=== PATIENT | female | born 1930 | race Caucasian/White ===

== ENCOUNTER → 2017-07-09 | Outpatient (CLI) | payer MEDICARE ==
[~2017-07-09] MED LIST: ALBU8.5H IH; ALLERGY INJECTIONS SQ; CHOL10005 PO; CHOL200022 PO; FLU44R IH; FLUINH INH; FLUT16SP20 NS; FLUT1BLS3 INH; GLUC-198 PO; LIS10 PO; LOR5/325 PO; LOSA25TA50 PO; MAGN400C PO; MAX75 PO; MAXIDE PO; OMEG-11 PO; VALS40TA6 PO; VITA1CAP46 PO
== END ==
LOC: LAB 07:11
PROVIDERS: ATTEND Internal Medicine
DX: I10 Essential (primary) hypertension (principal); E78.5 Hyperlipidemia, unspecified; E50.9 Vitamin A deficiency, unspecified; E55.9 Vitamin D deficiency, unspecified
CPT/HCPCS: 36415; 82040; 82247; 82306; 82310; 82374; 82435; 82465; 82565; 82947; 83718; 84075; 84132; 84155; 84295; 84450; 84460; 84478; 84520

== ENCOUNTER → 2017-07-23 | Outpatient (CLI) | payer MEDICARE ==
[~2017-07-23] MED LIST changes: -FLUT1BLS3 INH
--- NOTE | 2017-07-25 10:17 | RADIOLOGY IMAGING REPORT ---
FACILITY: [facility] [place] PATIENT NAME: DALIA SOLORZANO : [id number] MR: [id number] V: [id number] EXAM DATE: ORDERING PHYSICIAN: JOSE ENRIQUE BENÍTEZ TECHNOLOGIST: Abi Saleh PROCEDURE:BILATERAL DIGITAL SCREENING MAMMOGRAM WITH CAD ASSISTED INTERPRETATION & 3D TOMOSYNTHESIS COMPARISON:Prior mammograms 07/10/16, 06/22/15, 06/21/14, 06/18/13, 06/11/12, 06/07/11. INDICATIONS:SCREENING FINDINGS: A small amount of fibroglandular tissue is seen throughout the breasts. The parenchymal pattern has remained stable allowing for difference in mammographic technique & patient positioning. There is no evidence of malignant appearing mass, malignant appearing calcifications or other secondary sign of malignancy in either breast. DIAGNOSTIC CATEGORY 1--NEGATIVE. RECOMMENDATIONS: ROUTINE MAMMOGRAM AND CLINICAL EVALUATION. IMPRESSION: BIRADS 1: Negative No significant abnormality is seen Dictated by: Rukhsana Quigley M.D. on 07/23/2017 at 14:11 Transcribed by: DOMINIK on 07/23/2017 at 14:17 Approved by: Rukhsana Quigley M.D. on 07/25/2017 at 10:17 [facility]
== END ==
LOC: MAMO 01:16
PROVIDERS: ATTEND Internal Medicine
DX: Z12.31 Encounter for screening mammogram for malignant neoplasm of breast (principal)
CPT/HCPCS: 77063; 77067

== ENCOUNTER → 2018-08-11 | Outpatient (CLI) | payer MEDICARE ==
[~2018-08-11] MED LIST changes: +CHOL200018 PO; -CHOL200022 PO; +FLUT15.88; +FLUT1BLS3 INH; +IPRN; +LEVO5TAB28 PO; -LOSA25TA50 PO; +LOSA25TA57 PO; +MONT10TA PO
[2018-08-11 10:44] LABS: PLATELET COUNT, AUTOMATED 313 K/uL (150-450)
== END ==
LOC: LAB 10:14
PROVIDERS: ATTEND Internal Medicine
DX: J30.9 Allergic rhinitis, unspecified (principal); J45.909 Unspecified asthma, uncomplicated; I10 Essential (primary) hypertension; E78.5 Hyperlipidemia, unspecified
CPT/HCPCS: 36415; 81001; 82040; 82247; 82310; 82374; 82435; 82465; 82565; 82947; 83718; 84075; 84132; 84155; 84295; 84443; 84450; 84460; 84478; 84520; 85025

== ENCOUNTER → 2018-09-10 | Outpatient (CLI) | payer MEDICARE ==
[~2018-09-10] MED LIST changes: +FLUT1BLS3; +LOSA-51 PO
== END ==
LOC: RESP 01:29
PROVIDERS: ATTEND Internal Medicine
DX: J45.909 Unspecified asthma, uncomplicated (principal)
CPT/HCPCS: 94060; 94726; 94729

== ENCOUNTER 2018-09-15 14:08 | Outpatient (RCR) | payer MEDICARE ==
[2018-09-14 08:59] LABS: PLATELET COUNT, AUTOMATED 219 K/uL (150-450)
--- NOTE | 2018-09-14 09:52 | RADIOLOGY IMAGING REPORT ---
FACILITY: [facility] PATIENT NAME: Shelli Madrid : 1930 MR: [id number] V: [id number] EXAM DATE: ORDERING PHYSICIAN: HEIDI TEIXEIRA TECHNOLOGIST: [place] [facility] [place]lli [place] : 1930 Visit/Account:[id number] Date of Sevice: 09/14/2018 CHEST PA LAT INDICATION: dyspnea COMPARISON: None available FINDINGS: Heart size within normal limits. Lung volumes are hyperexpanded. There are trace bilateral pleural effusions present. No infiltrate is identified. Calcified granuloma is noted within the right upper lobe. IMPRESSION: 1. Pulmonary hyperexpansion consistent with COPD. 2. Trace bilateral pleural effusions versus blunting of the costophrenic angles. Report Dictated By: Mac Baum at 09/14/2018 9:47 AM Report E-Signed By: Mac Baum at 09/14/2018 9:49 AM WSN:[id number]
== END 2018-09-16 18:00 | disposition home or self-care (01) ==
LOC: EDSTATUS 14:08 → LAB 14:08
PROVIDERS: ATTEND Internal Medicine
DX: J44.9 Chronic obstructive pulmonary disease, unspecified (principal); J90 Pleural effusion, not elsewhere classified; R91.1 Solitary pulmonary nodule; J45.909 Unspecified asthma, uncomplicated; R06.9 Unspecified abnormalities of breathing; I10 Essential (primary) hypertension; R41.3 Other amnesia
CPT/HCPCS: 36415; 71046; 81001; 82040; 82247; 82310; 82374; 82435; 82565; 82607; 82746; 82947; 83880; 84075; 84132; 84155; 84295; 84450; 84460; 84520; 85025; 93306